=== PATIENT | female | born 1945 | race Caucasian/White ===

== ENCOUNTER 2024-03-15 05:37 | Day surgery (SDC) | payer MEDICARE ==
[2024-03-08 11:53] LABS: BASOPHILS # (AUTO) 0.1 X10'3 (0-0.2); BASOPHILS % (AUTO) 1.2 % (0-1); EOSINOPHILS # (AUTO) 0.1 X10'3 (0-0.9); LYMPHOCYTES # (AUTO) 1.8 X10'3 (1.1-4.8); LYMPHOCYTES % (AUTO) 26.7 % (21-51); MEAN CORPUSCULAR HEMOGLOBIN 28.8 PG (27.0-31.0); MEAN CORPUSCULAR HGB CONC 33.4 g/dL (33.0-36.5); MEAN CORPUSCULAR VOLUME 86.3 FL (78-98); MEAN PLATELET VOLUME 7.8 FL (7.4-10.4); MONOCYTES # (AUTO) 0.8 X10'3 (0-0.9); MONOCYTES % (AUTO) 12.2 % (2-12); NEUTROPHILS % (AUTO) 57.9 % (42-75); PRE OP HEMATOCRIT 42.6 % (35.0-45.0); PRE OP HEMOGLOBIN 14.2 g/dL (12.0-16.0); PRE OP PLATELET COUNT 269 X10'3 (140-440); PRE OP WHITE BLOOD COUNT 6.9 10'3 (4.8-10.8); RED BLOOD COUNT 4.93 X10'6 (4.20-5.60); RED CELL DISTRIBUTION WIDTH 15.2 % (11.5-14.5)
[2024-03-08 12:09] LABS: ALBUMIN 3.5 G/DL (3.4-5.0); ALBUMIN/GLOBULIN RATIO 0.9 (1.1-1.5); ALKALINE PHOSPHATASE 94 IU/L (46-116); BLOOD UREA NITROGEN 14 MG/DL (7-18); BUN/CREATININE RATIO 16.1 (10.0-20.0); CALCIUM 8.8 MG/DL (8.5-10.1); CHLORIDE 107 MMOL/L (99-107); CREATININE 0.87 MG/DL (0.40-0.90); PRE OP ALT 30 U/L (30-65); PRE OP ANION GAP 9 (8-16); PRE OP AST 20 U/L (10-37); PRE OP BILIRUB, TOTAL 0.8 MG/DL (0.0-1.0); PRE OP GLUCOSE 92 MG/DL (70-104); PRE OP POTASSIUM 3.8 MMOL/L (3.4-5.1); PRE OP SODIUM 143 MMOL/L (135-145); TOTAL CARBON DIOXIDE 27.5 MMOL/L (24-32); TOTAL PROTEIN 7.3 G/DL (6.4-8.2); eGFR 63 ML/MIN
[~2024-03-15] VITALS: Ht 154.9 cm; Wt 73.2 kg
[2024-03-15] VITALS (9 sets, daily range): BP systolic 124–194; BP diastolic 74–108; PULSE 72–79; RESP 10–16; TEMP 98.2; O2SAT 95–98
[~2024-03-15 05:37] MED LIST: AMIT10TA6 PO; DOCUMENT DATE & TIME OF BETA-BLOCKER PO ONE; IRBE300T26 PO; METO200T37 PO
[2024-03-15] MEDS: ringers solution, lacted 1,000 ML IV SCH (06:04)
[2024-03-15] MEDS: famotidine 20mg tablet PO ONE (06:05)
[2024-03-15] MEDS ORDERED: midazolam 1 mg/ML 2ml injection ONE (07:36)
[2024-03-15] MEDS ORDERED: sevoflurane 250ml liquid IH ONE (07:36)
[2024-03-15] MEDS ORDERED: rocuronium 10mg/ml inj IV ONE (07:36)
[2024-03-15] MEDS ORDERED: propofol inj 20 ML IV ONE (07:36)
[2024-03-15] MEDS ORDERED: fentaNYL/PF 50MCG/1 ML 2ML syringe ONE (07:36)
[2024-03-15] MEDS ORDERED: enalaprilat dihydrate 2.5mg/2ml vial IV PRN (08:15)
[2024-03-15] MEDS ORDERED: morphine 4 MG/ML inj SYRINge IV PRN (08:15)
[2024-03-15] MEDS ORDERED: proCHLORperazine 10 MG/2 ml inj IV PRN (08:15)
[2024-03-15] MEDS ORDERED: morphine 2 MG/ML inj. syringe IV PRN (08:15)
[2024-03-15] MEDS ORDERED: labetalol 20mg/4ml (5mg/ml) syringe IV PRN (08:15)
[2024-03-15] MEDS ORDERED: ondansetron/PF 4mg/2ml inj IV PRN (08:15)
[2024-03-15] MEDS ORDERED: ringers solution, lacted 1,000 ML IV SCH (08:15)
[2024-03-15] MEDS ORDERED: meperidine/PF 25mg/ml syringe IV PRN ×3 (08:15)
[2024-03-15] MEDS ORDERED: neostigmine methylsulfate 1 MG/ML 10ml vial ONE (08:23)
[2024-03-15] MEDS ORDERED: ondansetron/PF 4mg/2ml inj ONE (08:23)
[2024-03-15] MEDS ORDERED: dexamethasone sod phosphate 4mg/ml inj. ONE (08:23)
[2024-03-15] MEDS ORDERED: sugammadex 200mg/2ml injection IV ONE (08:41)
[2024-03-28] MEDS ORDERED: LACT30003 PO (10:02)
[2024-03-28] MEDS ORDERED: VITA40TA (10:02)
[2024-03-28] MEDS ORDERED: DIPH25CA83 PO (10:02)
[2024-03-28] MEDS ORDERED: VITAMIN B12 (10:02)
[2024-03-28] MEDS ORDERED: CHOL200077 PO (10:02)
[2024-03-28] MEDS ORDERED: LACT1CAP65 PO (10:02)
[2024-03-28] MEDS ORDERED: LOPE-144 PO (10:02)
[2024-03-28] MEDS ORDERED: CALCIUM PO (10:02)
== END 2024-03-15 09:37 | disposition home or self-care (01) ==
LOC: PRE-OP 05:37 → PAS 09:37
PROVIDERS: ATTEND Internal Medicine Critical Care Medicine
DX: R91.8 Other nonspecific abnormal finding of lung field (principal); I10 Essential (primary) hypertension; F41.9 Anxiety disorder, unspecified; Z85.3 Personal history of malignant neoplasm of breast; Z79.899 Other long term (current) drug therapy; Z88.0 Allergy status to penicillin
CPT/HCPCS: 31624; 31627; 31653; 36415; 71045; 71250; 80053; 82948; 85025; 87015; 87070; 87102; 87116; 87206; 88341; 93005; J1100; J2250; J2405; J2704; J2710; J3010; J3490; J7120; Z7506; Z7508; Z7512; 31622; 31625; 31626; 31628; 31654; 88172; 88173; 88305; 88342; A4618